=== PATIENT | male | born 1960 | race Caucasian/White ===

== ENCOUNTER 2022-05-25 04:23 | Inpatient (IN) ==
[2022-05-25 05:04] LABS: ABS Basophils 0.1 10^3/ul (0-0.2); ABS Eosinophils 0.1 10^3/ul (0-0.6); ABS Lymphocytes 1.4 10^3/ul (1.0-4.8); ABS Monocytes 0.5 10^3/ul (0-0.8); ABS Neutrophils 4.7 10^3/ul (1.5-7.7); Eosinophil % 1.1 %; Hematocrit 43 % (42-52); Hemoglobin 14.1 g/dL (14.0-18.0); Lymphocyte % 20.1 %; Mean Corpuscular HGB Conc 33 g/dL (31-36); Mean Corpuscular Hemoglobin 30 pg (27-31); Mean Corpuscular Volume 90 fL (80-94); Mean Platelet Volume 8.3 fL (7.4-10.4); Nucleated Red Blood Cells % 0.1; Platelet Count 210 10^3/uL (150-450); Red Blood Count 4.76 10^6 /uL (4.18-5.48); Red Cell Distribution Width 15 % (10-15); White Blood Count 6.7 10^3/uL (3.5-10.8)
[2022-05-25 05:42] LABS: Albumin/Globulin Ratio 1.8 (1-3); C Reactive Protein 5.26 mg/L (<8.01); Creatinine, Serum 0.98 mg/dL (0.67-1.17); Globulin 2.2 g/dL (2-4); Potassium 4.3 mmol/L (3.5-5.0); Total Bilirubin 1.1 mg/dL (0.2-1.0); Total Protein 6.2 g/dL (6.4-8.9); eGFR CKD-EPI 86.1 (>60)
[2022-05-25] MEDS ORDERED: Furosemide 20 mg/2 ml IV VIAL IV ONE (06:31)
[2022-05-25] MEDS ORDERED: Magnesium Sulfate 2 gm BAG 2 GM/50 ML BAG IVPB ONE ×2 (07:36→15:47)
[2022-05-25 07:47] LABS: Magnesium 1.8 mg/dL (1.9-2.7)
[2022-05-25] MEDS ORDERED: Sulfur Hexaflouride MICROSPHR 25 MG VIAL ONE (08:10)
[2022-05-25 08:29] LABS: High Sensitivity Troponin 1 Hr 53 pg/mL (<20)
[2022-05-25] MEDS: Enoxaparin 40 MG/0.4 ML SYR SUBCUT SCH (12:05)
[2022-05-25] MEDS ORDERED: Magnesium Sulfate 2 gm BAG 2 GM/50 ML BAG ONE (15:58)
[2022-05-25 18:47] LABS: Activated Partial Thrombo Time 30.8 seconds (26.0-38.0); INR 1.15 (0.88-1.18)
[2022-05-26 07:46] LABS: Creatinine, Serum 1.19 mg/dL (0.67-1.17); Magnesium 2.2 mg/dL (1.9-2.7); Phosphorus 4.2 mg/dL (2.5-5.0); Potassium 4.6 mmol/L (3.5-5.0); eGFR CKD-EPI 68.2 (>60)
[2022-05-26] MEDS ORDERED: NS 0.9% 1000 ml BAG 1,000 ML IV SCH (09:00)
[2022-05-26] MEDS: NS 0.9% 1000 ml BAG 1,000 ML IV SCH (09:00)
[2022-05-26] MEDS ORDERED: Amiodarone 400 mg TAB ONE (10:19)
[2022-05-26] MEDS: Amiodarone 400 mg TAB PO SCH ×2 (10:21→18:27)
[2022-05-26 10:44] LABS: TSH Ultra Thyroid Stim Horm 1.33 mcIU/mL (0.34-5.60)
[2022-05-26] MEDS ORDERED: Lidocaine 1% MPF 5 ML VIAL ONE (15:41)
[2022-05-26] MEDS ORDERED: Iohexol 350 (CONTRAST) 100 ML PAK IV ONE (15:42)
[2022-05-26] MEDS ORDERED: fentaNYL 100 mcg/2 ml 50 MCG/ML VIAL ONE (16:01)
[2022-05-26] MEDS ORDERED: Heparin 1,000 UNIT/ML 10 ml (10,000 UNITS) CATHLAB/DIALYSIS ONE (16:01)
[2022-05-26] MEDS ORDERED: Midazolam 5 mg/5 ml VIAL 1 mg/ml 5 ml VIAL (5 mg) ONE (16:01)
[2022-05-26] MEDS ORDERED: VERAPAMIL 2.5 MG/ML 2 ML VIAL ** 5 mg/2 ml ONE (16:01)
[2022-05-26] MEDS ORDERED: nitroGLYCERIN DRIP 25,000 MCG/250 ML BTL ONE (16:01)
[2022-05-26] MEDS ORDERED: Furosemide 20 mg/2 ml IV VIAL IV ONE (17:24)
[2022-05-26] MEDS ORDERED: Furosemide 40 mg/4 ml IV VIAL ONE (17:27)
[2022-05-26] MEDS: Enoxaparin 40 MG/0.4 ML SYR SUBCUT SCH (17:55)
[2022-05-27] MEDS: NS 0.9% 1000 ml BAG 1,000 ML IV SCH (04:44)
[2022-05-27 06:20] LABS: ABS Eosinophils 0.1 10^3/ul (0-0.6); ABS Lymphocytes 1.4 10^3/ul (1.0-4.8); ABS Monocytes 0.6 10^3/ul (0-0.8); ABS Neutrophils 3.7 10^3/ul (1.5-7.7); Eosinophil % 1.4 %; Hematocrit 44 % (42-52); Hemoglobin 14.3 g/dL (14.0-18.0); Lymphocyte % 24.6 %; Mean Corpuscular HGB Conc 32 g/dL (31-36); Mean Corpuscular Hemoglobin 29 pg (27-31); Mean Corpuscular Volume 91 fL (80-94); Mean Platelet Volume 8.5 fL (7.4-10.4); Nucleated Red Blood Cells % 0.1; Platelet Count 212 10^3/uL (150-450); Red Blood Count 4.89 10^6 /uL (4.18-5.48); Red Cell Distribution Width 14 % (10-15); White Blood Count 5.9 10^3/uL (3.5-10.8)
[2022-05-27] MEDS: Amiodarone 400 mg TAB PO SCH ×2 (09:24→20:00)
[2022-05-27] MEDS: Enoxaparin 40 MG/0.4 ML SYR SUBCUT SCH (09:24)
[2022-05-27 11:08] LABS: Calcium 9.1 mg/dL (8.6-10.3); Potassium 4.6 mmol/L (3.5-5.0)
[2022-05-27 11:14] LABS: Creatinine, Serum 1.16 mg/dL (0.67-1.17); eGFR CKD-EPI 70.3 (>60)
[2022-05-28 06:37] LABS: Calcium 9.2 mg/dL (8.6-10.3); Creatinine, Serum 1.3 mg/dL (0.67-1.17); Magnesium 2.1 mg/dL (1.9-2.7); eGFR CKD-EPI 61.3 (>60)
[2022-05-28 06:40] LABS: Potassium 5.1 mmol/L (3.5-5.0)
[2022-05-28] MEDS: Enoxaparin 40 MG/0.4 ML SYR SUBCUT SCH (09:13)
[2022-05-28] MEDS: Amiodarone 400 mg TAB PO SCH (09:15)
[2022-05-28] MEDS: Senna TAB 8.6 mg TAB PO SCH (20:36)
[2022-05-29 09:34] LABS: Calcium 9.4 mg/dL (8.6-10.3); Creatinine, Serum 1.27 mg/dL (0.67-1.17); eGFR CKD-EPI 63.1 (>60)
[2022-05-29 09:37] LABS: Potassium 5.1 mmol/L (3.5-5.0)
[2022-05-29] MEDS ORDERED: SODIUM ZIRCONIUM CYCLOSILICATE 10 GM PACKET PO ONE (09:40)
[2022-05-29 10:19] LABS: Ferritin 71.2 ng/mL (24-336)
[2022-05-29] MEDS: Amiodarone 400 mg TAB PO SCH (10:37)
[2022-05-29] MEDS: Enoxaparin 40 MG/0.4 ML SYR SUBCUT SCH (10:38)
[2022-05-29] MEDS: Senna TAB 8.6 mg TAB PO SCH (22:05)
[2022-05-30 07:00] LABS: Calcium 8.8 mg/dL (8.6-10.3); Creatinine, Serum 1.25 mg/dL (0.67-1.17); Magnesium 1.9 mg/dL (1.9-2.7); Potassium 4.6 mmol/L (3.5-5.0); eGFR CKD-EPI 64.3 (>60)
[2022-05-30] MEDS: Amiodarone 400 mg TAB PO SCH (09:06)
[2022-05-30] MEDS: Enoxaparin 40 MG/0.4 ML SYR SUBCUT SCH (09:08)
[2022-05-30 10:50] VITALS: BP 107/76
== END 2022-05-30 13:25 | disposition home or self-care (01) | DRG 287 ==
LOC: ED 04:23 → EDHOLD 04:23 → OBSVTOIN 07:17 → SUATTDRO 07:17 → EDHOLD 13:05 → MEDTELE 14:12
PROVIDERS: ADMIT Hospitalist; ATTEND Internal Medicine

== ENCOUNTER 2022-11-22 15:04 | Observation (INO) ==
[2022-11-22 15:32] LABS: ABS Basophils 0.1 10^3/uL (0.0-0.1); ABS Eosinophils 0.1 10^3/uL (0.0-0.5); ABS Lymphocytes 1.4 10^3/uL (1.0-4.8); ABS Monocytes 0.6 10^3/uL (0.0-1.1); ABS Neutrophils 4.4 10^3/uL (1.5-7.6); ABS Nucleated RBC 0.01 10^3/ul; Eosinophil % 1.8 %; Hematocrit 43.6 % (38-53); Hemoglobin 14.7 g/dL (13.2-16.3); Lymphocyte % 21.9 %; Mean Corpuscular Hemoglobin 31.1 pg (27-33); Mean Corpuscular Hgb Conc 33.7 g/dL (31-36); Mean Corpuscular Volume 92.2 fL (80-97); Mean Platelet Volume 9.4 fL (7.5-11.2); Nucleated Red Blood Cells % 0.2 /100 WBC (0.0-0.4); Platelet Count 183 10^3/uL (150-450); Red Blood Count 4.73 10^6/uL (4.06-5.63); Red Cell Distribution Width 14.6 % (12-17); White Blood Count 6.6 10^3/uL (3.6-10.2)
[2022-11-22 15:43] LABS: INR 1.41 (0.83-1.13)
[2022-11-22 15:54] LABS: Albumin 4.2 g/dL (3.2-5.2); Albumin/Globulin Ratio 1.8 (1-3); Calcium 9.5 mg/dL (8.6-10.3); Creatinine, Serum 1.09 mg/dL (0.67-1.17); Globulin 2.3 g/dL (2-4); Potassium 4.5 mmol/L (3.5-5.0); Total Bilirubin 1.2 mg/dL (0.2-1.0); Total Protein 6.5 g/dL (6.4-8.9); eGFR CKD-EPI 75.8 (>60)
[2022-11-22 17:10] LABS: High Sensitivity Troponin 1 Hr 66 pg/mL (<20)
[2022-11-22] MEDS: Metoprolol Tartrate 5 mg VIAL 5 ml VIAL (1 mg/ml) IV ONE ×2 (18:34→18:51)
[2022-11-22] MEDS ORDERED: Ondansetron 4 mg VIAL 2 MG/ML 2 ml VIAL IV PRN (20:34)
[2022-11-22] MEDS ORDERED: Furosemide 20 mg/2 ml IV VIAL IV SLOW PU ONE (21:13)
[2022-11-22 21:29] LABS: Magnesium 1.8 mg/dL (1.9-2.7)
[2022-11-23] MEDS ORDERED: Metoprolol Tartrate 5 mg VIAL 5 ml VIAL (1 mg/ml) IV PRN (01:11)
[2022-11-23] MEDS ORDERED: Magnesium Sulfate 2 gm BAG 2 GM/50 ML BAG IVPB ONE (04:20)
[2022-11-23] MEDS ORDERED: fentaNYL 100 mcg/2 ml 50 MCG/ML VIAL ONE (15:01)
[2022-11-23] MEDS ORDERED: Midazolam 5 mg/5 ml VIAL 1 mg/ml 5 ml VIAL (5 mg) ONE (15:01)
[2022-11-23] MEDS ORDERED: Flumazenil 0.5 mg/5 ml 0.1 MG/ML 5 ml VIAL ONE (15:01)
[2022-11-23] MEDS ORDERED: Naloxone 0.4 mg VIAL 0.4 mg/ml 1 ml VIAL ONE (15:01)
[2022-11-23] MEDS ORDERED: fentaNYL 100 mcg/2 ml 50 MCG/ML VIAL IV SLOW PU ONE (15:46)
[2022-11-23] MEDS ORDERED: Midazolam 10 mg/10 ml VIAL 1 mg/ml 10 ml VIAL (10 mg) IV SLOW PU ONE (15:46)
[2022-11-23] MEDS: Amiodarone 400 mg TAB PO SCH ×2 (17:54→21:19)
[2022-11-24 06:59] LABS: Calcium 8.9 mg/dL (8.6-10.3); Creatinine, Serum 1.26 mg/dL (0.67-1.17); Potassium 4.8 mmol/L (3.5-5.0); eGFR CKD-EPI 63.7 (>60)
[2022-11-24] MEDS: Amiodarone 400 mg TAB PO SCH (08:16)
[2022-11-24 10:41] VITALS: BP 126/91
[2022-11-25 12:59] LABS: Anaplasma phagocytophilum Negative (Negative); B. miyamotoi PCR, B Negative (Negative); Babesia divergens/MO-1 Negative (Negative); Babesia ducani Negative (Negative); Ehrlichia chaffeensis Negative (Negative); Ehrlichia ewingii/canis Negative (Negative); Ehrlichia muris eauclairensis Negative (Negative)
== END 2022-11-24 10:10 | disposition home or self-care (01) ==
LOC: EDHOLD 15:04 → ED 15:04 → SUATTDRO 20:34 → MEDTELE 22:37
PROVIDERS: ADMIT Hospitalist; ATTEND Hospitalist